=== PATIENT | male | born 1960 | race Caucasian/White ===

== ENCOUNTER 2018-05-02 12:40 | Emergency (ER) | payer OTHER ==
--- NOTE | 2018-05-02 13:30 | EDPHY ---
H & P Stated Complaint: L leg injury Time Seen by Provider: 05/02/18 13:28 HPI/ROS: Chief Complaint: Left leg injury HPI: The patient presents to the ED with complaints of pain and swelling to his left lower leg. He was trying to remove a 4" pipe at work when it quickly dislodged striking him in the left del real. The patient has pain an obvious swelling in the area of the injury. There is no laceration. Patient denies any acute numbness or weakness. He denies additional co injury. REVIEW OF SYSTEMS: Neuro: no headache, numbness, weakness Musculoskeletal: as above Skin: no abrasion or lacerations Source: Patient Exam Limitations: No limitations - Personal History Current Tetanus/Diphtheria Vaccine: Yes Current Tetanus Diphtheria and Acellular Pertussis (TDAP): Yes - Medical/Surgical History Hx Asthma: No Hx Chronic Respiratory Disease: No Hx Diabetes: No Hx Cardiac Disease: No Hx Renal Disease: No Hx Cirrhosis: No Hx Alcoholism: No Hx HIV/AIDS: No Hx Splenectomy or Spleen Trauma: No Other PMH: HTN, hyperlipidemia - Social History Smoking Status: Never smoked - Physical Exam Exam: General Appearance: Alert, no distress Skin: Superficial abrasion left leg Extremities: Tenderness to palpation left lower leg, small area of soft tissue swelling, compartments supple, 2+ dorsalis pedis and posterior tibial pulses. Neurological: Normal motor and sensory exam noted throughout the left lower extremity Constitutional: Initial Vital Signs Heart Rate 98 05/02/18 12:45 Respiratory Rate 24 H 05/02/18 12:45 Blood Pressure 150/89 H 05/02/18 12:45 O2 Sat (%) 99 05/02/18 12:45 O2 Delivery Mode Room Air Allergies/Adverse Reactions: No Known Allergies Allergy (Unverified 05/02/18 12:43) Home Medications: Medication Instructions Recorded Allopurinol 05/02/18 Atorvastatin Calcium 05/02/18 Fluticasone Nasal 05/02/18 Lisinopril 05/02/18 Metoprolol Succinate 05/02/18 oxyCODONE/APAP 5/325 [Percocet 1 - 2 tab PO Q6-8PRN PRN #20 tab 05/02/18 5/325 (RX)] Medical Decision Making - Diagnostics Imaging Results: Imaging Impressions Tibia/Fibula X-Ray 05/02/18 12:50 Impression: 1. Soft tissue swelling. 2. Apparent old healed contour deformity of the distal fibular diaphysis. 3. There is no acute osseous abnormality, or radiopaque foreign body. ED Course/Re-evaluation: Patient presents to the ED for evaluation of a left leg injury. He has a area of soft tissue swelling noted on exam without evidence of laceration or compartment syndrome. He is neurovascularly intact. Patient denies additional injury. X-ray demonstrates no evidence of an acute fracture. The patient has been given customary compartment syndrome aftercare instructions. The patient will be discharged home with a prescription for Percocet. The patient is given the contact number of our on-call orthopedic surgeon for any unimproved symptoms. Differential Diagnosis: Differential diagnosis considered includes fracture, sprain, dislocation, compartment syndrome Departure - Departure Disposition: Home, Routine, Self-Care Clinical Impression: Hematoma of leg Condition: Good Instructions: Contusion in Adults (ED) Additional Instructions: 1. Please ice 20-30 minutes at a time 4 to 5 times a day for the next several days. 2. Elevate left leg as much as possible. 3. Please limit year activity. 4. Crutches as needed for comfort. 4. Return to the ED for markedly increasing pain, tenseness in the muscles in your left leg, numbness, weakness or other concerns. 5. Follow up with the orthopedic surgeon you have been referred to for any persistent symptoms. Referrals: Orly Martino MD [Medical Doctor] - As per Instructions
[2018-05-02 13:58] VITALS: BP 143/91
== END 2018-05-02 13:50 | disposition home or self-care (01) ==
DX: S80.12XA Contusion of left lower leg, initial encounter (principal); E78.5 Hyperlipidemia, unspecified; I10 Essential (primary) hypertension; W20.8XXA Other cause of strike by thrown, projected or falling object, initial encounter; Y99.0 Civilian activity done for income or pay